=== PATIENT | female | born 1990 | race Caucasian/White ===

== ENCOUNTER 2023-04-22 14:47 | Emergency (ER) | payer BC, MEDICAID ==
[~2023-04-22] VITALS: Ht 154.9 cm; Wt 85.0 kg
[~2023-04-22 14:47] MED LIST: DULO60CA60 PO
[2023-04-22 14:49] VITALS: BP 151/110
== END 2023-04-22 17:59 | disposition home or self-care (01) ==
LOC: ER 14:47
DX: S46.912A Strain of unspecified muscle, fascia and tendon at shoulder and upper arm level, left arm, initial encounter (principal); Z88.8 Allergy status to other drugs, medicaments and biological substances; X58.XXXA Exposure to other specified factors, initial encounter; Y93.89 Activity, other specified; Y92.89 Other specified places as the place of occurrence of the external cause; Y99.8 Other external cause status
CPT/HCPCS: 73030; 99283